=== PATIENT | male | born 1975 | race Two or more races ===

== ENCOUNTER 2024-03-05 09:24 | Emergency (ER) | payer OTHER | END 2024-03-05 11:07 | disposition home or self-care (01) | LOC: MW.ED 09:24 | DX: S39.012A Strain of muscle, fascia and tendon of lower back, initial encounter (principal); Z75.8 Other problems related to medical facilities and other health care; Z79.899 Other long term (current) drug therapy; X50.0XXA Overexertion from strenuous movement or load, initial encounter; Y93.89 Activity, other specified | CPT/HCPCS: 99283 ==